=== PATIENT | male | born 1995 | race Caucasian/White ===

== ENCOUNTER 2025-09-27 12:09 | Emergency (ER) | payer OTHER, SELFPAY ==
--- NOTE | ~2025-09-27 | CT_ITS ---
CLINICAL HISTORY: [facility] s p fall. feels out of it CT head without contrast Comparison: None available Findings: No acute hemorrhage. No extra-axial fluid collection. No hydrocephalus, mass-effect or herniation. Beltrán-white differentiation is maintained. White matter is within normal limits for age. No acute orbital pathology. No acute soft tissue abnormality. No fracture. Retention cysts/polyps in the maxillary sinuses. The other visualized paranasal sinuses are predominantly clear. The mastoid air cells are clear. Impression: No acute findings. This document has been electronically signed by: Faye Ventura MD on 09/27/2025 13:39:49
--- NOTE | ~2025-09-27 | CT_ITS ---
CLINICAL HISTORY: neck pain s p fall CT cervical spine without contrast Comparison: None available Findings: Normal alignment. No fracture. No severe spinal canal stenosis. No epidural hematoma. Normal thickness of the prevertebral soft tissues. Trace biapical scarring. Impression: No acute findings. This document has been electronically signed by: Faye Ventura MD on 09/27/2025 13:40:17
[2025-09-27 12:11] VITALS: BP 137/91; PULSE 100; RESP 18; TEMP 36.9; O2SAT 98; BMI 25.7
--- NOTE | 2025-09-27 12:12 | ED.HA ---
HPI - Headache General Chief Complaint: Head Injury Stated Complaint: CT scan urgent care called Time Seen by Provider: 09/27/25 12:49 Source: patient, RN notes reviewed and old records reviewed Mode of arrival: ambulatory History of Present Illness ED Provider: Katie Levy PA-C HPI Narrative: 30-year-old male with no significant PMHx presenting to the ED sent in from Urgent Care for head CT s/p trip and head strike last night. States he was taking his trash out when the bag and caused him to fall over. States went white for a minute with associated nausea and wooziness, resolved/improved at present. Reports continued mild headache, neck pain, and feeling out of it. Denies vision change or loss, vomiting, weakness, AC use Related Data Allergies Allergy/AdvReac Type Severity Reaction Status Date / Time amoxicillin Allergy Intermediate Swelling Verified 09/27/25 12:13 aripiprazole (From Abilify) Allergy Unknown Unknown Verified 09/27/25 12:14 Sulfa (Sulfonamide Allergy Unknown N/A Verified 09/27/25 12:13 Antibiotics) (SULFA (SULFONAMIDE ANTIBIOTICS)) Review of Systems Review of Systems: Yes all other systems are reviewed and are negative Constitutional: Constitutional: Reports as per HPI Neurologic: Denies Abnormal speech present [facility] Past Medical History Attestation statement: The following information was validated with the patient. Source: old records reviewed Social History Social History Advance Directives: No Advance Directives Information Provided: Yes Do you have a plan to hurt others: No Plan Physical Exam Vital Signs: Vital Signs: Last Vital Signs Temp 98.2 F 09/27/25 14:08 Pulse 98 09/27/25 14:08 Resp 18 09/27/25 14:08 BP 129/88 09/27/25 14:08 Pulse Ox 98 09/27/25 14:08 O2 Del Method Room Air 09/27/25 14:08 BMI result Body Mass Index 25.7 Const: General: cooperative, healthy appearing and no acute distress Orientation/consciousness: patient oriented x3 Limitations: no limitations HEENT: Head: Yes normal to inspection and Yes atraumatic Ears: hearing grossly normal bilaterally General nose exam: Normal external nose present Face and sinus: Yes normal facial exam Eyes: General: appearance normal, both eyes and all related structures Pupils: Equal, round and reactive pupils present EOM: EOMs intact bilaterally Neck: Other: No reproducible tenderness Neck: Yes normal visual inspection, Yes no meningeal signs and No anterior neck swelling Resp: Effort & Inspection: normal respiratory effort and no respiratory distress Cardio: Rate: regular rate Heart sounds: S1 normal heart sound present and S2 normal heart sound present Back/Spine/Pelvis: Other: No midline cervical/thoracic/lumbar spinous tenderness/step-off or deformity Skin: Rashes: no rashes Wounds: no wounds Neuro: General: patient oriented x3, gait normal, tone normal, moves all extremities, no meningeal signs, no focal motor deficits and CN's II-XI intact bilaterally Cranial nerves: Yes CN's II-XII intact bilaterally, Yes Equal, round and reactive pupils present and Yes Bilaterally intact EOM present Cognition (Neuro): normal cognition Speech: No Abnormal speech present Gait exam (Neuro): Normal gait present Motor exam (neuro): 5/5 motor strength present throughout Extrem: General: Yes normal to inspection Course Course Course Narrative: This is a Rapid Medical Exam performed in triage by Katie Levy PA-C. Full HPI, ROS and PE to be performed by primary ED provider. 30 yo M presenting to the ED c/o sent in for UC for Head CT s/p trip & fall with +HS last night. States was taking his trash out when had mechanical slip & fall, states went white for a minute with assoc nausea you had lightheadedness. Reports mild headache at present, neck pain, and feeling out of it. Denies blurry/double vision, vomiting PE: NAD, ambulating with steady gait Plan: Head / C-spine CT -1400--head and C-spine CT unremarkable Results discussed with patient including worrisome signs and symptoms and strict return precautions, and when to return to the emergency department. They verbalized understanding and feel safe for discharge at this time. Medical Decision Making Medical Decision Making MDM Narrative: 30-year-old male with no significant PMHx presenting to the ED sent in from Urgent Care for head CT s/p trip and head strike last night. States he was taking his trash out when the bag and caused him to fall over. On exam vital signs stable, NAD, nontoxic appearing, physical exam as noted above. No midline spinous tenderness. No focal neuro deficits. Concern for concussion. Rule out ICH/fractures. Low suspicion for SAH Plan: Head/C-spine CT Please refer to course for remaining clinical decision making, interpretation of labs/imaging results, and discussions with consultants and/or family members. Differential Diagnosis Differential Diagnoses: The differential diagnosis associated with the presentation includes As above Admission/Observation Consideration of admission/observation: Escalation of care including admission/observation considered Lab Data MDM Lab Attestation statement: I reviewed the patient's lab results. Independent Interpretation I performed an independent interpretation of an: CT Scan Radiology Impression Discussion of test interpretation with radiology: I have reviewed the radiologist's reading. External Record Review External record reviewed: Inpatient record, Office record, Outpatient record, Prior outpatient labs, Prior outpatient radiology, Primary care record and Outside ED record Tests considered The following testing was considered but not selected: As above Prescription Management I considered prescription management with: Pain Medication Chronic Conditions Patient?s care impacted by: Other Social Determinants Patient?s care significantly limited by Social Determinants of Health including: Other Social Determinant of Health Discharge Plan Discharge Clinical Impression: Concussion Patient Disposition: Home, Self-Care Instructions: Concussion (ED) Additional Instructions: The CAT scan of your head and neck are unremarkable You likely have a concussion Please practice brain rest. Avoid bright lights, screen time Take Tylenol and ibuprofen at home as needed It is normal for you to have some headache, some lightheadedness and nausea. However this is persistent or worsening, you have weakness, vision change or loss, vomiting return to the ED Referrals: Jorge Abbasi MD [Primary Care Provider, Internal Medicine] - 1 week Stand Alone Forms: Work/School Release Interventions: ED Discharge Assessment Last Done: 09/27/25 14:08 Discharge Date/Time: 09/27/25 14:09 Print Language: Macedonian
--- OUTSIDE RECORDS SUMMARY | 2025-09-27 14:07 | XMS_ITS | Encounter Summary ---
Author Organization [facility] Address [address] [place] [address] Phone Care Team Providers Care Physical Therapy Asst Name Role Phone Mckenna Liao MD Primary Care Provider Encounter Details Date Type Department Care Team (Late st Contact Info) Description 07/10/2013 Documentation [facility] [place] Family Medicine [address] [place], [place] [id number] Family Medicine, Physician [address] [place] [address] Social History Tobacco Use Types Packs/Day Years Used Date Smoking Tobacco: Never Assessed Sex and Gender Information Value Date Recorded Sex Assigned at Not on file Legal Sex Male 5:04 PM EDT Gender Identity Not on file Sexual Orientation Not on file documented as of this encounter Plan of Treatment Not on file documented as of this encounter Visit Diagnoses Not on filedocumented in this encounter Care Teams Physical Therapy Asst Relationship Specialty Start Date End Date Mckenna Liao MD [address] [place] [address] [place] [address] PCP - General 07/07/17 02/28/23 documented as of this encounter
--- OUTSIDE RECORDS SUMMARY | 2025-09-27 14:07 | XMS_ITS | Encounter Summary ---
Author Organization [facility] Address [address] [place] [address] Phone Care Team Providers Care Pulper Name Role Phone Mckenna Liao MD Primary Care Provider Encounter Details Date Type Department Care Team (Late st Contact Info) Description 02/01/2016 Documentation [facility] Family Medicine [address] [place], [place] [id number] Family Medicine, Physician [address] [place] [address] Social History Tobacco Use Types Packs/Day Years [...] on filedocumented in this encounter Care Teams Pulper Relationship Specialty Start Date End Date Mckenna Liao MD [address] [place] [address] [place] [address] PCP - General 07/07/17 02/28/23 documented as of this encounter
--- OUTSIDE RECORDS SUMMARY | 2025-09-27 14:07 | XMS_ITS | Encounter Summary ---
Author Organization [facility] Address [address] [place] [address] Phone Care Team Providers Care Bindery Operator Name Role Phone Mckenna Liao MD Primary Care Provider Encounter Details Date Type Department Care Team (Late st Contact Info) Description 09/14/2011 Documentation [facility] [place] Medicine [address] [place], [place] [phone] Family Medicine, Physician [address] [place] [address] Social History Tobacco Use Types Packs/Day Years [...] on filedocumented in this encounter Care Teams Bindery Operator Relationship Specialty Start Date End Date Mckenna Liao MD [address] [place] [address] [place] [address] PCP - General 07/07/17 02/28/23 documented as of this encounter
--- OUTSIDE RECORDS SUMMARY | 2025-09-27 14:07 | XMS_ITS | Encounter Summary ---
Author Organization [facility] Address [address] [place] [address] Care Team Providers Care Insulation Hoseman Name Role Phone Jorge Abbasi Primary Care Provider [phone] Reason for Visit * Reason Onset Date Comments worsening rash 02/07/2022 Encounter Details Date Type Department Care Team ([facility] st Contact Info) Description 02/07/2022 Telephone [facility] Central Scheduling Department [address] [place] [address] Telephone Intake, Staff worsening rash Social History Tobacco Use Types Packs/Day Years Used Date Smoking Tobacco: Never Smokeless Tobacco: Never Sex and Gender Information Value Date Recorded Sex Assigned at Male 02/13/2025 11:43 AM EDT Legal Sex Male 4:21 PM EST Gender Identity Male 02/13/2025 11:43 AM EDT Sexual Orientation Not on file documented as of this encounter Miscellaneous Notes * Telephone Encounter - Kemi Rg - 02/07/2022 3:29 PM EDT Left vm on [id number] for worsening rash documented in this encounter Plan of Treatment Not on file documented as of this encounter Visit Diagnoses Not on filedocumented in this encounter Care Teams Insulation Hoseman Relationship Specialty Start Date End Date Jorge Abbasi [address] [place] [address] PCP - General Internal Medicine 03/18/25 documented as of this encounter
--- OUTSIDE RECORDS SUMMARY | 2025-09-27 14:07 | XMS_ITS | Encounter Summary ---
Author Organization [facility] Address [address] [place] [phone] Phone Care Team Providers Care Speaker Mounter Name Role Phone Mckenna Liao MD Primary Care Provider Encounter Details Date Type Department Care Team (Late st Contact Info) Description 05/09/2016 Documentation [facility] [place] Family Medicine [address] [place], [place] [phone] Family Medicine, Physician [address] [place] [address] Social History Tobacco Use Types Packs/Day Years [...] on filedocumented in this encounter Care Teams Speaker Mounter Relationship Specialty Start Date End Date Mckenna Liao MD [address] [place] [address] [place] [address] PCP - General 07/07/17 02/28/23 documented as of this encounter
--- OUTSIDE RECORDS SUMMARY | 2025-09-27 14:07 | XMS_ITS | Encounter Summary ---
Author Organization [facility] Address [address] [place] [address] Care Team Providers Care Executive Admin Name Role Phone Jorge Abbasi Primary Care Provider [phone] Reason for Visit * Reason Onset Date Comments Appointment 03/01/2022 Encounter Details Date Type Department Care Team ([facility] st Contact Info) Description 03/01/2022 Telephone [facility] Central Scheduling Department [address] [place] [address] Telephone Intake, Staff Appointment Social History Tobacco Use Types Packs/Day Years Used Date Smoking Tobacco: Never Smokeless Tobacco: Never Sex and Gender Information Value Date Recorded Sex Assigned at Male 02/13/2025 11:43 AM EDT Legal Sex Male 4:21 PM EST Gender Identity Male 02/13/2025 11:43 AM EDT Sexual Orientation Not on file documented as of this encounter Miscellaneous Notes * Telephone Encounter - Karin Moctezuma - 03/01/2022 4:24 PM EDT Pt had apt on 05/23 that was canceled and provided earlier apt. Pt is trying to verify this apt but nothing is showing in epic. He talked to someone on 02/07. Please call [phone] documented in this encounter Plan of Treatment Not on file documented as of this encounter Visit Diagnoses Not on filedocumented in this encounter Care Teams Executive Admin Relationship Specialty Start Date End Date Jorge Abbasi [address] [place] [address] PCP - General Internal Medicine 03/18/25 documented as of this encounter
--- OUTSIDE RECORDS SUMMARY | 2025-09-27 14:07 | XMS_ITS | Encounter Summary ---
Author Organization [facility] Address [address] [place] [address] Phone Care Team Providers Care Quiller Machine Fixer Name Role Phone Mckenna Liao MD Primary Care Provider [phone] Encounter Details Date Type Department Care Team (Late st Contact Info) Description 07/13/2017 Conversion Encounter [facility] [place] [address] [place] [address] Social History Tobacco Use Types Packs/Day Years Used Date Smoking Tobacco: Never Comments:Never smoker Sex and Gender Information Value Date Recorded Sex Assigned at Not on file Legal Sex Male 5:04 PM EDT Gender Identity Not on file Sexual Orientation Not on file documented as of this encounter Plan of Treatment Not on file documented as of this encounter Visit Diagnoses Not on filedocumented in this encounter Care Teams Quiller Machine Fixer Relationship Specialty Start Date End Date Mckenna Liao MD [address] [place] [address] PCP - General 07/07/17 02/28/23 documented as of this encounter
--- OUTSIDE RECORDS SUMMARY | 2025-09-27 14:07 | XMS_ITS | Data Portability ---
Author Organization [facility], [address] Address [address] [place] [address] Assessment No assessment recorded. Plan of Treatment Reminders Order Date Submit Date Provider Last Modified By Organization Details Last Modified Time Details Appointments None recorded. Lab glucose, fingerstic k, blood 2023 024 [email or web address] _ashwinjessica bowiellhartman, [address] [place] [address], [phone], 4 17:38:57 rapid SARS CoV 2 Ag, QL IA, respirator y specimen 2022 023 sghohestan [email or web address] [facility], [address] [place], [address], 3 16:11:34 Referral None recorded. Procedures None recorded. Surgeries None recorded. Imaging None recorded. Medication Orders doxycyclin e monohydrat e 100 mg capsule 2023 024 ATHENAFAX [facility], [address] [place], [address], 4 18:30:45 Patient TargetsNo targets recorded. Patient Instructions Encounter Date Encounter Id Patient Instructions Last Modified By Organization Details Last Modified Time 01/19/2023 [id number] coronavirus (covid-19): care instructions [email or web address] Not available 01/19/2023 15:58:19 10/26/2024 [id number] cough: care instructions [email or web address] Not available 10/26/2024 17:28:06 You were seen today for cough and sinus symptoms. Recommendation as below: - Doxycycline 100 mg twice a day for 5 days -delsym or Dayquil as needed for cough -Tylenol 1000 mg every 6 hours as needed for pain/fever/body aches -Drink plenty of fluid and get plenty of rest -Return to urgent care if worsening symptoms [email or web address] Not available 10/26/2024 17:28:55 Reason for Referral None Reported. Results Created Date Observation Date Name Description Value Unit Range Abnormal Flag Note LastModifiedBy Organization Detail LastModifiedTime 01/19/2001/19/2023 rapid SARS CoV 2 Ag, QL IA, respi rator y speci men Unknown Analyte Normal =Negat liu Not Available [address], [address], 01/19/2023 15:46:02 01/19/20 23 01/19/2023 rapid SARS CoV 2 Ag, QL IA, respi rator y speci men Unknown Analyte negati ve Not Available [address], [address], 01/19/2023 15:46:02 10/16/20 24 10/16/2024 gluco se, finge rstic k, blood blood sugar - non fasting 123 mg/dL 80-140 = normal normal Not Available [facility] [address] [place], [address], 10/16/2024 17:26:16 10/16/20 24 10/16/2024 gluco se, finge rstic k, blood blood sugar - fasting mg/dL 80-125 = normal Not Available [address] [place] [address] [address] [place], [address], 10/16/2024 17:26:16 Result Notes None recorded. Problems Name Problem SNOMED Code Status Onset Date Resolution Date Notes Provider Name and Address Organization Details Recorded Time Anxiety 93979365 Active SoniaABENA Alejandra - [facility] 10/26/2024 17:03:32 Cough 84630214 Active 024 ALEX HARTMAN MD [address] [place], [place] [address], [address] , [place] - [facility] 10/26/2024 17:27:42 Notes:dermatographia Problem Notes None recorded. Medical Equipment None Reported. Allergies Allergen ID Allergen Name Allergen Category Reaction Reaction Severity Criticality Documentation Date Start Date Code Code System Note Provider Name and Address Organization Details Recorded Time Product containin g penicilli n (product) medicatio n Not available Not available Not available 01/19/2023 65952 8001 SNOMED hives Mira Sharon amaya PA - [facility] 3 15:47:15 897842 Substance with sulfonami de structure and antibacte rial mechanism of action (substanc e) medicatio n Not available Not available Not available 01/19/2023 39276 8003 SNOMED Mira Sharon amaya PA - [facility] 3 15:47:28 016144 Abilify medicatio n Not available Not available Not available 01/19/2023 53908 3 RxNorm Mira Sharon amaya PA - [facility] 3 15:47:39 Medications Name Sig Start Date Stop Date Status Note LastModified by Organization Details LastModified Time doxycycline monohydrate 100 mg capsule Take 1 capsule twice a day by oral route for 5 days. 2023 active Not Available Not Available Not Avai lable Xolair 150 mg subcutaneous solution active Not Available Not Available Not Available mirtazapine active Not Available Not A vailable Not Available Dupixent 100 mg/0.67 mL subcutaneous syringe Inject by subcutaneou s route. active Not Available Not Available No t Available Vitals Date Recorded Body height Body mass index (BMI) Body weight Pain severity - 0-10 verbal numeric rating [Score] - Reported Oxygen saturation Oxygen saturation in Arterial blood by Pulse oximetry Heart rate Respiratory rate Body temperature Systolic And Diastolic Provider Name and Address Organization Details Last Updated DateTime 3 180.34 cm 25.1 kg/m2 76003.6 3 g 2 98 % 98 % 86 /min 18 /min 98.1 [degF] 126/90 mm[Hg] Mira Fullerbibgirish PA - [facility] 3 15:51:42 Date Recorded Body height Body mass index (BMI) Body weight Body temperature Respiratory rate Oxygen saturation Oxygen saturation in Arterial blood by Pulse oximetry Pain severity - 0-10 verbal numeric rating [Score] - Reported Heart rate Systolic And Diastolic Provider Name and Address Organization Details Last Updated DateTime 4 180.34 cm 25.1 kg/m2 75693.6 3 g 97.8 [degF] 16 /min 98 % 98 % 0 100 /min 143/96 mm[Hg] Sonia [place] - [facility] 4 17:20:01 Date Recorded Body height Body mass index (BMI) Body weight Oxygen saturation Oxygen saturation in Arterial blood by Pulse oximetry Heart rate Respiratory rate Body temperature Pain severity - 0-10 verbal numeric rating [Score] - Reported Systolic And Diastolic Provider Name and Address Organization Details Last Updated DateTime 4 180.34 cm 25.1 kg/m2 76602.6 3 g 97 % 97 % 120 /min 18 /min 98.2 [degF] 7 145/99 mm[Hg] Sonia [place] PA - [facility] 4 17:02:20 Social History Question Answer Notes LastModified by Dimmi Details LastModified Time Tobacco Smoking Status Never Smoker Mira Fullerbetina amaya PA - [facility] 01/19/2023 15:49:59 Which Illicit Or Recreational Drugs Have You Used? Marijuana Information not available 01/19/2023 Have You Had A Flu Shot This Season? No Information not available 10/16/2024 If No, Would You Like A Flu Shot Today? No Information not available 10/16/2024 Have You Recently Traveled Abroad? No Information not available 01/19/2023 Sex: Unknown Functional Status Question Answer Note LastModified by Dimmi Details LastModified Time Do you use any illicit or recreational drugs? Yes Information not available 01/19/2023 What is your level of alcohol consumption? None Information not available 01/19/2023 Mental Status None recorded. Family History Relationship Description Onset Age of this Age Resolved Age Notes LastModified by Organization Details LastModified Time Father No current problems or disability [email or web address] Not available 01/19 15:49:42 Mother No current problems or disability [email or web address] Not available 01/19 15:49:42 Medical History No medical history recorded. Immunizations Vaccine Type Date Status Note Provider Nam e and Address Organization Details Recorded Time COVID-19, mRNA, LNP-S, PF, 100 mcg/0.5mL dose or 50 mcg/0.25mL dose 12/23/2020 completed Mira Monfette null, [place] - [facility] 01/19/2023 15:46:53 COVID-19, mRNA, LNP-S, PF, 100 mcg/0.5mL dose or 50 mcg/0.25mL dose 01/20/2021 completed Mira Monfette null, PA - [facility] 01/19/2023 15:46:53 COVID-19, mRNA, LNP-S, PF, 100 mcg/0.5mL dose or 50 mcg/0.25mL dose 09/20/2021 completed Mira Monfette null, [place] - [facility] 01/19/2023 15:46:53 Influenza, split virus, quadrivalent, PF 08/27/2020 completed Mira Monfette null, [place] - [facility] 01/19/2023 15:46:53 Past Encounters Encounter ID Performer Location Encounter Start Date Encounter Closed Date Diagnosis/Indication Diagnosis SNOMED-CT Code Diagnosis ICD10 Code Diagnosis IMO Codes Diagnosis Note [id number] [address] [facility] [address] [place] [address] 11/17/2019 15:27:58 11/17/2019 16:40:53 [id number] [address] [facility] [address] [place] [address] 10/27/2019 14:45:49 10/27/2019 15:39:35 [id number] [address] [address] [place] [address] 07/14/2019 11:31:22 07/14/2019 11:50:56 [id number] [address] [facility] [place] [address] 02/16/2019 09:44:51 02/16/2019 10:27:16 [id number] ABENA KNOX [address] [place] [address] 01/19/2023 14:23:18 01/19/2023 16:14:05 Acute upper respiratory infection 80169343 J06.9 [id number] ABENA Irene [address] [place] [address] 10/16/2024 17:12:23 10/16/2024 17:41:12 Vasovagal symptom 240647157 R55 You were seen today for some nausea, lightheade dness and malaise after having some blood drawn today. It sounds like a vasovagal response, which is a drop in blood pressure causing fainting in some cases, after a fight or flight reaction gets triggered. Yours seems to have lasted a bit longer than usual, but given your current vital signs, exam, and glucose, this is something that will likely resolve on its own Vasovagal care instructio ns: -Drink plenty of fluids to prevent dehydratio n. If you have kidney, heart, or liver disease and have to limit fluids, talk with your doctor before you increase your fluid intake. -Try to avoid things that you think may set off vasovagal syncope. -Talk to your doctor about any medicines you take. Some medicines may increase the chance of this condition occurring. -If you feel symptoms, lie down with your legs raised. [id number] ALEX HARTMAN MD [address] [place] [address] 10/26/2024 16:11:00 10/26/2024 17:31:17 Cough 08167627 R05.9 c/f bacterial bronchitis given length of symptoms. Health Concerns Section Related Observation LastModified by Organization Detai ls LastModified Time None Recorded Concern Status LastModified by Organization Details LastModified Time None Recorded Advance Directives Directive None Recorded Payers Insurance Date Sequence Insurance Name Policy Number Policy Spears Covered Member ID Spears Member ID Guarantor Name 10/26/2024 1 [facility] (MEDICAID REPLACEMENT - HMO) [id number] Casey Pope [id number] Casey Pope 10/16/2024 1 [place] [facility] Casey Pope [id number] Casey Ppoe Notes Date Note Type Note Provider Name and Address Organization Details Recorded Time 01/19/2023 text/html fever, headache, congestion x4 days, no known exposure to covid, took home covid test and was negative, requests rapid covid test ABENA TORRES [address] [place], [address], [place] - [facility] 01/19/2023 16:12:02 10/16/2024 text/html 29 y/o male here 6 hours after getting blood drawn due to feeling clammy, nauseated, lightheaded about an hour after the blood draw. He has been able to eat since it started, no vomiting, but still feels queasy ABENA Irene [address] [place], [address], [place] - [facility] 10/16/2024 17:42:36 10/26/2024 text/html CoughReported by PatientCough for 10 days, burning when coughing. Lethargic. congestion/runny nose. Daquil not helping., ALEX HARMTAN MD [address] [place], [address], [place] - [facility] 10/26/2024 20:43:03
--- OUTSIDE RECORDS SUMMARY | 2025-09-27 14:07 | XMS_ITS | Encounter Summary ---
Author Organization [facility] Address [address] [place] [address] Phone Care Team Providers Care Analytical Sciences Director Name Role Phone Mckenna Liao MD Primary Care Provider Encounter Details Date Type Department Care Team (Late st Contact Info) Description 07/29/2015 Documentation [facility] Family Medicine [address] [place], [place] [phone] Family Medicine, Physician [address] [place] [address] Social History Tobacco Use Types Packs/Day Years [...] on filedocumented in this encounter Care Teams Analytical Sciences Director Relationship Specialty Start Date End Date Mckenna Liao MD [address] [place] [address] [place] [address] PCP - General 07/07/17 02/28/23 documented as of this encounter
--- OUTSIDE RECORDS SUMMARY | 2025-09-27 14:07 | XMS_ITS | Clinical Summary ---
Author Organization [facility] Address [address] [place] [address] Phone Care Team Providers Care Advertising Strategist Name Role Phone Unavailable Primary Care Provider Unavailabl e Immunizations Immunization Administration Dates Next Due DTP 1995,1995 DTaP 5 07/04/2000,12/30/1996,01/11/1996 HPV, Quadrivalent 02/13/2015 Hep A, ped/adol 02/13/2015 Hep B, ped/adol 04/02/1996,1995,1995 Hib (PRP-T) 12/30/1996,199 6,1995, 995 IPV 07/04/2000,199 7,1995, 995 Influenza, injectable, trivalent 10/06/2008 Influenza, intranasal, trivalent 11/25/2011 MMR 07/04/2000,10/02/1996 Meningococcal Conj (Menactra) MCV4P 11/09/2007 Tdap 10/16/2006 Varicella 11/15/2010,07/04/2000 Family History Relation Name Status Comments Brother Alive Brother: Autism Father Alive Father: Alive a nd well Mother Alive Mother: Alive a nd well Sister Alive Sister: Alive a nd well Social History Tobacco Use Types Packs/Day Years Used Date Smoking Tobacco: Never Comments:Never smoker Sex and Gender Information Value Date Recorded Sex Assigned at Not on file Legal Sex Male 5:04 PM EDT Gender Identity Not on file Sexual Orientation Not on file Last Filed Vital Signs Vital Sign Reading Time Taken Comments Blood Pressure 100/67 09/09/2016 12:00 AM EDT Pulse 98 09/09/2016 12:00 AM EDT Temperature 36.5 C (97.7 F) 09/09/2016 12:00 AM EDT Respiratory Rate - - Oxygen Saturation 97% 04/28/2016 12:00 AM EDT Inhaled Oxygen Concentration - - Weight 63 kg (139 lb) 09/09/2016 12:00 AM EDT Height 180.3 cm (5' 11 ) 08/12/2016 12:00 AM EDT Body Mass Index 19.39 08/12/2016 12:00 AM EDT Plan of Treatment Health Maintenance Due Date Last Done Comments HPV Vaccines (2 - Male 3-dose series) 03/13/2015 02/13/2015 DTaP,Tdap,and Td Vaccines (7 - Td or Tdap) 10/16/2016 10/16/2006, 07/04/2000, 12/30/1996, Additional history exists Influenza Vaccines (#1) 2025 11/25/2011, 10/06 COVID-19 Vaccine ( season) 2025 Hepatitis B Vaccines Completed 04/02/1996, 1995, 1995 HIB Vaccines Completed 12/30/1996, 12/28, 1995, Additional history exists IPV Vaccines Completed 07/04/2000, 01/1997, 1995, Additional history exists MMR Vaccines Completed 07/04/2000, 10/02/1996 Meningococcal Vaccine Aged Out 11/09/2007 No eliazar yesi eligible based on patient's age to complete this topic Varicella Vaccines Completed 11/15/2010, 07/04/2000 Hepatitis A Vaccines Aged Out 02/13/2015 No long er eligible based on patient's age to complete this topic Men B Vaccine Aged Out No longer elig ible based on patient's age to complete this topic Pneumococcal Vaccine Aged Out No long er eligible based on patient's age to complete this topic
--- OUTSIDE RECORDS SUMMARY | 2025-09-27 14:07 | XMS_ITS | Encounter Summary ---
Author Organization [facility] Address [address] [place] [address] Care Team Providers Care Concession Cashier Name Role Phone Jorge Abbasi Primary Care Provider [phone] Reason for Visit * Reason Onset Date Comments dermotology 08/24/2022 Encounter Details Date Type Department Care Team (Late st Contact Info) Description 08/24/2022 Telephone [facility] Central Scheduling Department [address] [place] [address] Telephone Intake, Staff dermotology Social History Tobacco Use Types Packs/Day Years Used Date Smoking Tobacco: Never Smokeless Tobacco: Never Sex and Gender Information Value Date Recorded Sex Assigned at Male 02/13/2025 11:43 AM EDT Legal Sex Male 4:21 PM EST Gender Identity Male 02/13/2025 11:43 AM EDT Sexual Orientation Not on file documented as of this encounter Miscellaneous Notes * Telephone Encounter - Katerine Mitchell - 08/24/2022 3:02 PM EDT Pt calling to change appt for dupixent to Sep 01 instead of MondaySep 02. documented in this encounter Plan of Treatment Not on file documented as of this encounter Visit Diagnoses Not on filedocumented in this encounter Care Teams Concession Cashier Relationship Specialty Start Date End Date ElroyJorge [address] [place] [address] PCP - General Internal Medicine 03/18/25 documented as of this encounter
--- OUTSIDE RECORDS SUMMARY | 2025-09-27 14:07 | XMS_ITS | Clinical Summary ---
Author Organization [facility] Address [address] [place] [address] Care Team Providers Care Communications Operator Name Role Phone Elroy Damonmir Primary Care Provider [phone] Allergies Active Allergy Reactions Criticality Noted Date Comments Amoxicillin Rash 01/07/2022 Amoxicillin-Pot Clavulanate Rash 01/07/20 22 urticaria Aripiprazole Dystonia 01/07/2022 Sulfadiazine Rash 01/07/2022 Medications mometasone (NASONEX) nasal spray Administer into affected nostril(s). 1 Active chlorhexidine (HIBICLENS) 4% external liquidIndication s:Folliculitis Apply topically to the affected area(s) BELOW THE NECK daily 120 mL 3 2 Active levocetirizine (XYZAL) 5 mg tablet Take 5 mg by mouth. 2 Active omalizumab 150 mg/mL syringe Inject 300 mg under the skin. 2 Active betamethasone dipropionate (DIPROSONE) 0.05 % creamIndications :Dermatitis,Ecze ma, unspecified type Apply topically to the affected area daily as needed for rash. Do not use on your face or genital skin. 45 g 2 2 Active famotidine (PEPCID) 20 mg tabletIndication s:Eczema, unspecified type Take 1 tablet (20 mg total) by mouth 2 times a day. 180 tablet 5 2 Active Additional Information Patient not taking.Reported on 02/12/2025 clindamycin (Cleocin T) 1 % lotionIndication s:Folliculitis Apply to affected areas of pimples once daily. Apply after using HIBICLENS or benzoyl peroxide wash in the shower. 60 mL 5 3 Active Additional Information Patient not taking.Reported on 02/12/2025 hydrocortisone 2.5% creamIndications :Eczema, unspecified type For flares on the face: use twice daily for 2 weeks, THEN once daily for 2 weeks, then discontinue altogether. You may repeat this cycle for flares. 90 g 3 4 Active tacrolimus (PROTOPIC) 0.1 % ointmentIndicati ons:Eczema, unspecified type Apply topically to the affected area 2 times a day. 60 g 2 4 Active Additional Information Patient not taking.Reported on 02/12/2025 valACYclovir (VALTREX) 1 gram tabletIndication s:Herpes simplex Take two 1 gram tablets of valacyclovir at the first sign of a cold sore outbreak with a large glass of water, and repeat this dose in 12 hours x 1. 16 tablet 5 4 Active tralokinumab-ldr m (ADBRY) 150 mg/mL syringeIndicatio ns:Eczema, unspecified type Inject 2 mL (300 mg total) under the skin every 14 days. 4 mL 5 5 Active tralokinumab-ldr m (ADBRY) 150 mg/mL syringeIndicatio ns:Eczema, unspecified type Inject 2 mL (300 mg total) under the skin every 28 days. 2 mL 5 5 Active dupilumab (Dupixent Syringe) 300 mg/2 mL syringe injection Inject 2 mL (300 mg total) under the skin every 14 days. 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 Increased frequency of urination 05/18/2022 Encounters Date Type Department Care Team Description 08/22/2025 Refill [facility] 4th Floor [address] [facility], [place] [address] Cable Braider: Rickey Overton MD from Last 3 Months Immunizations Immunization Administration Dates Next Due Covid-19 Monovalent Vaccine, Moderna, mRNA, PF 09/20/2021,01/20/2021,12/23/2020 Diphtheria, Tetanus Toxoids and Acellular Pertussis Vaccine 07/04/2000,12/30/1996,01/11/1996,1994,1995 Diphtheria, Tetanus Toxoids and Acellular Pertussis Vaccine, 5 Pertussis Antigens 07/04/2000,12/30/1996,01/11/1996 Diphtheria, Tetanus Toxoids and Pertussis Vaccine 1995,1995 Haemophilus Influenzae Type B Vaccine, PRP-T Conjugate 12/30/1996,01/11/1996,1995,1994 Hepatitis A Vaccine, Adult Dosage 02/13/2015 Hepatitis A Vaccine, Pediatric/Adolescent Dosage, 2 Dose Schedule 02/13/2015 Hepatitis B Vaccine, Pediatr ic or Pediatric/Adolescent Dosage 04/02/1996,1995,1995 Human Papilloma Virus Vaccin e, Quadrivalent 02/13/2015,02/13/2015 Influenza Virus Vaccine, Maryam e, Attenuated, for Intranasal Use 11/25/2011 Influenza, Injectable, Quadr ivalent, Preservative Free 08/27/2020 Social History Tobacco Use Types Packs/Day Years Used Date Smoking Tobacco: Never Smokeless Tobacco: Never Sex and Gender Information Value Date Recorded Sex Assigned at Male 02/13/2025 11:43 AM EDT Legal Sex Male 4:21 PM EST Gender Identity Male 02/13/2025 11:43 AM EDT Sexual Orientation Not on file Last Filed Vital Signs Vital Sign Reading Time Taken Comments Blood Pressure 138/96 06/14/2022 10:52 AM EDT Pulse - - Temperature - - Respiratory Rate - - Oxygen Saturation - - Inhaled Oxygen Concentration - - Weight 78.8 kg (173 lb 12.8 oz) 022 10:52 AM EDT Height 180.3 cm (5' 11 ) 05/02/2022 9:49 AM EDT Body Mass Index 24.24 05/02/2022 9:49 AM EDT Plan of Treatment Health Maintenance Due Date Last Done Comments HIV Screening 1995 Alcohol/Substance Use Screening 11/27/2024 COVID-19 Vaccine ( season) 2025 09/20/2021, 01/20/2021, 12/23/2020 Influenza Vaccine (#1) 2025 , 09/24/2018, 11/25/2011, Additional history exists DTaP,Tdap,and Td Vaccines (8 - Td or Tdap) 04/12/2027 04/12/2017, 10/16/2006, 07/04/2000, Additional history exists RSV Vaccine (60+ years old and patients) (1 - 1-dose 75+ series) 2070 Hepatitis B Vaccines Completed 04/02/1996, 1995, 1995 Varicella Vaccines Completed 11/15/2010, 07/04/2000 Pneumococcal Vaccine: Pediatric (0-5 Years) and At-Risk Patients (6-50 Years) Aged Out No longer eligible based on patient's age to complete this topic Insurance [facility] MEDICAID Care Teams Communications Operator Relationship Specialty Start Date End Date Jorge Abbasi [address] [place] [address] [phone] PCP - General Internal Medicine 4/22/25
--- OUTSIDE RECORDS SUMMARY | 2025-09-27 14:07 | XMS_ITS | Encounter Summary ---
Author Organization [facility] Address [address] [place] [address] Phone Care Team Providers Care Special Education Instructor Name Role Phone Mckenna Liao MD Primary Care Provider Encounter Details Date Type Department Care Team (Late st Contact Info) Description 01/29/2016 Documentation [facility] [place] [address] [place], [place] [phone] Family Medicine, Physician [address] [place] [address] Social History Tobacco Use Types Packs/Day Years [...] on filedocumented in this encounter Care Teams Special Education Instructor Relationship Specialty Start Date End Date Mckenna Liao MD [address] [place] [address] [place] [address] PCP - General 07/07/17 02/28/23 documented as of this encounter
--- OUTSIDE RECORDS SUMMARY | 2025-09-27 14:07 | XMS_ITS | Encounter Summary ---
Author Organization [facility] Address [address] [place] [address] Phone Care Team Providers Care General Ledger Bookkeeper Name Role Phone Mckenna Liao MD Primary Care Provider Encounter Details Date Type Department Care Team (Late st Contact Info) Description 01/29/2016 Documentation [facility] [place] [address] [place], [place] [phone] Family Medicine, Physician [address] [place] [address] Social History Tobacco Use Types Packs/Day Years [...] on filedocumented in this encounter Care Teams General Ledger Bookkeeper Relationship Specialty Start Date End Date Mckenna Liao MD [address] [place] [address] [place] [address] PCP - General 07/07/17 02/28/23 documented as of this encounter
--- OUTSIDE RECORDS SUMMARY | 2025-09-27 14:07 | XMS_ITS | Encounter Summary ---
Author Organization [facility] Address [address] [place] [id number] Phone Care Team Providers Care Blocker And Sewer Name Role Phone Mckenna Liao MD Primary Care Provider [phone] Encounter Details Date Type Department Care Team (Late st Contact Info) Description 02/01/2016 Documentation [facility] [place] Family Medicine [address] [place], [place] [id number] Family Medicine, Physician [address] [place] [address] Social History Tobacco Use Types Packs/Day Years [...] on filedocumented in this encounter Care Teams Blocker And Sewer Relationship Specialty Start Date End Date Mckenna Liao MD [address] [place] [address] [place] [address] PCP - General 07/07/17 02/28/23 documented as of this encounter
--- OUTSIDE RECORDS SUMMARY | 2025-09-27 14:07 | XMS_ITS | Encounter Summary ---
Author Organization [facility] Address [address] [place] [phone] Phone Care Team Providers Care Packerhead Machine Operator Name Role Phone Mckenna Liao MD Primary Care Provider [phone] Encounter Details Date Type Department Care Team (Late st Contact Info) Description 12/21/2015 Documentation [facility] [place] [address] [place], [place] [phone] Family Medicine, Physician [address] [place] [address] Social History Tobacco Use Types Packs/Day Years [...] on filedocumented in this encounter Care Teams Packerhead Machine Operator Relationship Specialty Start Date End Date Mckenna Liao MD [address] [place] [address] [place] [address] PCP - General 07/07/17 02/28/23 documented as of this encounter
[2025-09-27 14:08] VITALS: BP 129/88; PULSE 98; RESP 18; TEMP 36.8; O2SAT 98
== END 2025-09-27 14:09 | disposition home or self-care (01) ==
PROVIDERS: Emergency Provider Emergency Medicine Emergency Medical Services; PCP Internal Medicine
DX: S06.0X0A Concussion without loss of consciousness, initial encounter (principal); M54.2 Cervicalgia; R51.9 Headache, unspecified; W19.XXXA Unspecified fall, initial encounter; Y93.9 Activity, unspecified; Y92.9 Unspecified place or not applicable; Y99.8 Other external cause status
CPT/HCPCS: 70450; 72125; 99282; 99284

== ENCOUNTER → 2025-09-27 12:13 | Outpatient (BNV) | payer OTHER, SELFPAY | PROVIDERS: Emergency Provider Emergency Medicine Emergency Medical Services; PCP Internal Medicine; Visit Provider Radiology Diagnostic Radiology | DX: M54.2 Cervicalgia (principal); R51.9 Headache, unspecified; W18.39XA Other fall on same level, initial encounter | CPT/HCPCS: 70450; 72125 ==